=== PATIENT | female | born 1985 | race Caucasian/White ===

== ENCOUNTER → 2020-07-28 | Outpatient (CLI) | payer MEDICAID ==
--- NOTE | 2020-08-15 02:57 | ECWPNPC ---
PATIENT NAME: JAZMÍN AMATO : 1985 GENDER: FEMALE VISIT DATE: 07/28/2020 DISCHARGE DATE: 07/28/20 1240 VISIT LOCKED DATE TIME: PHYSICIAN: CAMILA YANCEY MD RESOURCE: CAMILA YANCEY MD REASON FOR APPOINTMENT 1. MIGRAINES HISTORY OF PRESENT ILLNESS GENERAL: 34-YEAR-OLD FEMALE PATIENT WITH A HISTORY OF CHRONIC MIGRAINES. THE PATIENT DESCRIBES THE MIGRAINES CONSTANT, ACHING AND THROBBING WITH A PAIN SCORE RANGING FROM 3-10/10. SHE IS HAVING HEADACHES EVERY DAY OF THE MONTH WITH SEVERE MIGRAINES AT LEAST 3 TIMES A WEEK. THE PATIENT STATES THAT SHE HAS SOME LEVEL OF MILD INTRACRANIAL HYPERTENSION. SHE IS TOLD THERE IS NO TREATMENT NEEDED AT THIS TIME. SHE IS ALSO FOLLOWED BY NEUROLOGY. THE PATIENT STATES THAT SHE HAS STARTED A DIET THAT LIMITS CARBS AND OTHER KNOWN TRIGGERING FOODS. THE PATIENT USES LESS SUGAR IN HER DIET. THE PATIENT WAS INTERVIEWED ABOUT MEDICATION USES AND SHE HAS TRIED AND FAILED OR HAS SIDE EFFECTS TO MULTIPLE MEDICATIONS INCLUDING, BUT NOT LIMITED TO, NSAIDS, TRIPANS, ANTIDEPRESSANTS AND ANTIEPILEPTICS. PATIENT DENIES UNEXPLAINABLE WEIGHT LOSS, FEVER, CHILLS, NEW CHANGES ON URINARY OR BOWEL CONTROL. FALL RISK SCREENING: SCREENING :ONE FALL WITHOUT INJURY IN THE PAST YEAR PAIN SCREENING: PATIENT HAS A COMPLAINT OF ACUTE OR CHRONIC PAIN :YES LOCATION OF PAIN:HEAD INTENSITY OF PAIN (SCALE OF 1 TO 10):6 WHAT DOES YOUR PAIN FEEL LIKE:ACHING DURATION:CONTINOUS, CONSTANT PAIN IS INCREASED BY:OTHERS LIGHT, SOUND PAIN IS DECREASED BY:OTHERS SLEEP LEVEL OF RELIEF FROM PAIN TREATMENTS IN THE PAST:0% PAIN HAS INTERFERED WITH THE FOLLOWING:BATHING/DRESSING, WALKING ABILITY, EMPLOYMENT, HOUSEWORK, SLEEP, TRANSPORTATION, TOILETING NURSING NOTE: - - -. PAIN CENTER INTAKE QUESTIONS: DO YOU HAVE A HISTORY OF MRSA? :NO DO YOU TAKE A BLOOD THINNERS? :NO DO YOU HAVE ANY BLEEDING DISORDERS? :NO ANY NEW NUMBNESS OR WEAKNESS IN YOUR LEGS OR ARMS? :NO ANY PACEMAKER,DEFIBRILLATOR, OR DORSAL COLUMN STIMULATOR? :NO DO YOU HAVE ANY RASHES OR OPEN SORES? :YES ECZEMA ARE YOU ALLERGIC TO IV DYE? :NO ARE YOU DIABETIC? :NO ANY NEW PROBLEMS WITH YOUR MEDICATIONS? :YES [employer] (1BOG) DOESN'T WORK HAVE YOU RECEIVED A VACCINE IN THE PAST 30 DAYS? :YES IF SO WHAT VACCINE AND WHEN? FLU VACCINE RECENTLY DO YOU PLAN TO RECEIVE A VACCINE IN THE NEXT 21 DAYS? :NO DO YOU NEED ANY PRESCRIPTION? :YES TO DISCUSS COCKTAIL OF BENADRYL , ZOFRAN AND SOMETHING ELSE DO YOU TAKE ANY IMMUNOSUPPRESSIVE MEDICATIONS? :NO CURRENT MEDICATIONS TAKING FIORICET 50-300-40 MG CAPSULE 1 CAPSULE NEEDED ORALLY EVERY 4 HRS TAKING VOLTAREN-XR 50MG ORALLY BID TAKING RITALIN SR 54 MG ORALLY DAILY TAKING SERTRALINE HCL 100 MG TABLET 150 MG ORALLY ONCE A DAY TAKING ALBUTEROL PUFFER INHALER PRN TAKING MECLIZINE HCL 25 MG TABLET CHEWABLE 1 TABLET NEEDED ORALLY ONCE A DAY TAKING POTASSIUM 10 MEQ ORAL DAILY TAKING LORATADINE 10 MG TABLET 1 TABLET ORALLY ONCE A DAY TAKING HYDROCHLOROTHIAZIDE 50 MG TABLET 1 TABLET IN THE MORNING ORALLY ONCE A DAY TAKING VITAMIN B COMPLEX - TABLET DIRECTED ORALLY TAKING VITAMIN B2 50 MG TABLET 2 TABLETS ORALLY ONCE A DAY TAKING - TABLET 1 TABLET ORALLY ONCE A DAY MEDICATION LIST REVIEWED AND RECONCILED WITH THE PATIENT PAST MEDICAL HISTORY ADHD ANXIETY MIGRAINES INTERCRANIAL HTN VENOUS INSUFFICIENCY ASTHMA ALLERGIES PENICILLIN (FOR ALLERGIES USE ONLY): HIVES - ALLERGY MORPHINE SULFATE: NAUSEA/VOMITING - ALLERGY VICODIN: NAUSEA/VOMITING - ALLERGY OXYCODONE HCL: NAUSEA/VOMITING - ALLERGY PERCOCET: NAUSEA/VOMITING - ALLERGY TOPIRAMATE: NO MENSTRUAL CYCLE - SIDE EFFECTS DECADRON: CONVULSIONS - ALLERGY DILAUDID: HALLUCINATION - ALLERGY SURGICAL HISTORY C SECTIONS WISDOM TEETH PULLED TONSILLECTOMY EAR TUBES AND BUTTONS FAMILY HISTORY FATHER: ALIVE MOTHER: ALIVE 2 SISTER(S) . 2 SON(S) , 2 DAUGHTER(S) - HEALTHY. SOCIAL HISTORY GENERAL: TOBACCO USE ARE YOU A:FORMER SMOKER HOW LONG HAS IT BEEN SINCE YOU LAST SMOKED?> 10 YEARS LATEX QUESTIONNAIRE LATEX ALLERGY : HAVE YOU EVER DEVELOPED ANY TYPE OF REACTION AFTER HANDLING LATEX PRODUCTS SUCH RUBBER GLOVES, CONDOMS, DIAPHRAGMS, BALLOONS, SOCKS, OR UNDERWEAR?NO LATEX ALLERGY : HAVE YOU EVER DEVELOPED ANY TYPE OF REACTION DURING OR AFTER DENTAL APPOINTMENT, VAGINAL/RECTAL EXAMINATION, SURGICAL PROCEDURE, OR ANY OTHER EXPOSURE?NO LATEX RISK : HAVE YOU EVER HAD ANY DIFFICULTY BREATHING OR HIVES AFTER EATING OR HANDLING ANY FRUITS, OR VEGETABLES; SUCH KIWI, BANANAS, STONE FRUITS, OR CHESTNUTSNO LATEX RISK : DO YOU HAVE A PREVIOUS PERSONAL HISTORY OF MORE THAN NINE SURGERIES, SPINA BIFIDA, OR REPEATED CATHERIZATIONS? NO LATEX RISK : ARE YOU FREQUENTLY EXPOSED TO LATEX PRODUCTS IN YOUR OCCUPATION?NO DATE ASKED : 07/28/2020 ALCOHOL SCREENING DID YOU HAVE A DRINK CONTAINING ALCOHOL IN THE PAST YEAR?YES HOW OFTEN DID YOU HAVE A DRINK CONTAINING ALCOHOL IN THE PAST YEAR?TWO TO FOUR TIMES A MONTH (2 POINTS) HOW MANY DRINKS DID YOU HAVE ON A TYPICAL DAY WHEN YOU WERE DRINKING IN THE PAST YEAR?1 OR 2 (0 POINTS) HOW OFTEN DID YOU HAVE SIX OR MORE DRINKS ON ONE OCCASION IN THE PAST YEAR?NEVER (0 POINTS) POINTS2 INTERPRETATIONNEGATIVE RECREATIONAL DRUG USE DRUG USE?NO LANGUAGE LANGUAGES SPOKEN:COLOMBIAN LEARNING BARRIERS / SPECIAL NEEDS BARRIERS TO LEARNING?NO HEARING IMPAIRED?NO VISION IMPAIRED?YES :CORRECTIVE LENSES COGNITIVELY IMPAIRED?NO READINESS TO LEARN?YES LEARNING PREFERENCES?NO LEARNING CAPABILITIES PRESENT?YES EMOTIONAL BARRIERS?NO SPECIAL DEVICES?NO PAIN CLINIC PFS, CLERGY, PUBLIC HEALTH REFERRALS HAS THE PATIENT BEEN EDUCATED REGARDING HIS/HER PLAN OF CARE?YES HAS THE PATIENT BEEN EDUCATED REGARDING PAIN, THE RISK FOR PAIN, THE IMPORTANCE OF EFFECTIVE PAIN MANAGEMENT, AND THE PAIN ASSESSMENT PROCESS?YES ADVANCE DIRECTIVE ADVANCE DIRECTIVE DISCUSSED WITH PATIENT:YES NO, DELCINED HOSPITALIZATION/MAJOR DIAGNOSTIC PROCEDURE CHILDBIRTH SURGERY REVIEW OF SYSTEMS CONSTITUTIONAL: ANY RECENT FEVER NO . CHILLS NO . WEIGHT CHANGE OF UNKNOWN REASONS NO . MUSCULOSKELETAL: ANY UNUSUAL JOINT PAIN OR SWELLING NOT MENTIONED NO . SYSTEMIC LUPUS NO . ANY NEUROMUSCULAR DISORDER NOT MENTIONED NO . LYME DISEASE NO . GASTROENTEROLOGY: ANY NEW CHANGE IN BOWEL CONTROL? NO . HISTORY OF LIVER DISORDER NOT MENTIONED NO . NEW UNEXPLAINABLE CHANGES IN BOWEL CONTROL. HISTORY OF UNUSUAL ABDOMINAL PAIN OR CRAMPING NOT MENTIONED NO . NO CONSTIPATION. GENITOURINARY: ANY NEW CHANGE IN BLADDER CONTROL? NO . ANY RENAL/KIDNEY CONDITON NOT MENTIONED NO . NEUROLOGY: HISTORY OF TBI NOT MENTIONED NO . OTHER NEW NUMBNESS OR PAIN PATTERNS NOT MENTIONED NO . NEW ONSET DIZZINESS OR NEUROLOGICAL CHANGES NOT MENTIONED NO . NEW NUMBNESS OR PAIN PATTERNS NOT MENTIONED AND PERTINENT TO TODAY'S VISIT. HISTORY OF SEVERE HEADACHES NOT MENTIONED NO . HISTORY OF STROKE OR NEUROLOGICAL DISORDER NOT MENTIONED NO . CARDIOLOGY: NEW CHEST PRESSURE. HEART SURGERY NO . CONGESTIVE HEART FAILURE/FLUID OVERLOAD NOT MENTIONED NO . NEW CHEST PAIN . HISTORY OF CHEST PAIN,IRREGULAR HEART BEAT NOT MENTIONED NO . RESPIRATORY: SHORTNESS OF BREATH ON EXERTION, WHEEZES, UNUSUAL COUGH NOT MENTIONED NO . UNEXPLAINABLE COUGH. NEW SHORTNESS OF BREATH. ENDOCRINOLOGY: ADRENAL GLAND OR THYROID DISORDERS NOT MENTIONED NO . UNUSUAL URINATION, DIZZINESS OR LETHARGY NOT MENTIONED NO . VITAL SIGNS WT 241.2 LBS, HT 52 IN, BMI 62.71 INDEX, BP 118/69 MM HG, HR 90 /MIN, RR 18 /MIN, TEMP 97.8 F, OXYGEN SAT % 95%, SAFE IN ENV? (Y/N) Y, NA INITIALS AW 1110, REVIEWED BY: EM. EXAMINATION GENERAL EXAMINATION: THE PATIENT IS ALERT, ORIENTED TIMES THREE AND COOPERATIVE. HEART SHOWS REGULAR RHYTHM, NO MURMURS AND NO GALLOPS. LUNGS ARE CLEAR TO AUSCULTATION. THE PATIENT SEEMS TO HAVE FULL RANGE OF MOTION OF THE NECK. THE PATIENT SEEMS TO HAVE ADEQUATE PERIPHERAL VISION. CRANIAL NERVES ARE GROSSLY INTACT. SHE CAN ABDUCT HER UPPER EXTREMITIES TO SHOULDER LEVEL. SHE SEEMS TO HAVE ADEQUATE STRENGTH IN THE UPPER EXTREMITIES. THERE IS SOME TIGHTNESS OVER THE SHOULDERS. ASSESSMENTS CHRONIC MIGRAINE WITHOUT AURA, NOT INTRACTABLE, WITHOUT STATUS MIGRAINOSUS - G43.709 TREATMENT CHRONIC MIGRAINE WITHOUT AURA, NOT INTRACTABLE, WITHOUT STATUS MIGRAINOSUS CLINICAL NOTES: I DISCUSSED ALTERNATIVES WITH MS. AMATO. I WOULD LIKE TO SEE THE BRAIN MRI REPORT. THE PATIENT ALSO MENTIONED TO ME THAT THEY HAVE BEEN FOLLOWING HER FOR BENIGN INTRACRANIAL HYPERTENSION THAT DOES NOT REQUIRE TREATMENT. I DO NOT SEE ANY CONTRAINDICATIONS TO DOING BOTOX INJECTIONS. I INFORMED THE PATIENT THAT WE CAN GIVE HER SOME MEDICATIONS THE DAY OF THE PROCEDURE, BEFORE THE PROCEDURE, TO RELAX HER. I DISCUSSED WITH THE PATIENT THE ALTERNATIVES WITH BOTOX. THE PATIENT WOULD LIKE TO THINK ABOUT IT. I DISCUSSED WITH HER SOME MEDICATIONS THAT SHE COULD TRY SUCH PROPRANOLOL, GABAPENTIN, CYMBALTA AND THERE ARE OTHER PRODUCTS THAT I AM NOT FAMILIAR WITH SUCH VERAPAMIL. THE PATIENT PLANS TO DISCUSS THIS WITH HER NEUROLOGIST. THE PATIENT REPORTS UNDERSTANDING AND AGREES WITH THE PLAN. I, SAMMI AVILA, DOCUMENTED THE ABOVE INFORMATION ACTING A SCRIBE FOR DR. YANCEY. I HAVE REVIEWED THE ABOVE DOCUMENT, WRITTEN BY SAMMI AVILA, RADIO AERIAL INSTALLER, AND I VERIFY THAT IT IS ACCURATE. DEAR DR. RICH THANK YOU FOR YOUR KIND REFERRAL OF JAZMÍN AMATO. IF YOU WANT TO DISCUSS HER CASE WITH ME PLEASE CALL ME AT THE PAIN CENTER AT [phone]. SINCERELY, CAMILA YANCEY MD PAIN MEDICINE . PROCEDURE CODES FA211 ESTABILISHED PATIENT [facility] CHARGE [id number] OFFICE/OUTPATIENT VISIT NEW DISPOSITION & COMMUNICATION FOLLOW UP PATIENT WILL CALL FOR FOLLOW UP (REASON: POSSIBLE BOTOX) ELECTRONICALLY SIGNED BY CAMILA YANCEY MD, MD ON 08/14/2020 AT 12:50 PM EST DISCLAIMER : THIS IS A VISIT SUMMARY EXTRACTED FROM THE [employer] CHART. IT IS NOT A COPY OF THE [employer] PROGRESS NOTE. RIGOBERTO
== END ==
LOC: M PAIN 11:00
PROVIDERS: ATTEND Anesthesiology
DX: G43.709 Chronic migraine without aura, not intractable, without status migrainosus (principal); F90.9 Attention-deficit hyperactivity disorder, unspecified type; F41.9 Anxiety disorder, unspecified; J45.909 Unspecified asthma, uncomplicated; G93.2 Benign intracranial hypertension; I87.2 Venous insufficiency (chronic) (peripheral); Z87.891 Personal history of nicotine dependence; Z79.899 Other long term (current) drug therapy; Z88.0 Allergy status to penicillin; Z88.5 Allergy status to narcotic agent; Z88.8 Allergy status to other drugs, medicaments and biological substances